=== PATIENT | female | born 1980 | race Two or more races ===

== ENCOUNTER 2025-03-14 19:58 | Emergency (ER) | payer MEDICAID, SELFPAY ==
[2025-03-14 20:36] VITALS: BP 119/80; PULSE 92; RESP 18; TEMP 37; O2SAT 98; BMI 31.3
--- NOTE | 2025-03-14 21:03 | XR_ITS ---
Examination: Pelvic ultrasound, transabdominal, complete Technique: Transabdominal ultrasound of the pelvis performed using grayscale imaging Date and time of exam: March 14, 2025 2116 hours INDICATIONS: Heavy vaginal bleeding beginning 2 days ago FINDINGS: Uterus 7.7 cm endometrial stripe 1.1 cm Impression intrauterine gestation Right ovary 3.7 cm arterial flow 24 mm cyst Left ovary 3.2 cm arterial flow IMPRESSION: No uterine mass or intrauterine gestation Right ovarian simple cyst 2.4 x 1.5 x 1.5 cm
--- NOTE | 2025-03-14 21:05 | EDNOTE_ITS ---
ED General RME/HPI General Chief complaint: Vaginal Bleeding Stated complaint: VAGINAL BLEEDING Time Seen by Provider: 03/14/25 20:11 Arrival date/time: 03/14/25 19:58 Mode of arrival: ambulatory Limitations: no limitations RME / HPI RME / HPI narrative: see EFREM CAUSEY complaint: profuse vaginal bleeding Onset (ago): day(s) Related Data Allergies Allergy/AdvReac Type Severity Reaction Status Date / Time No Known Allergies Allergy Verified 03/14/25 20:00 Review of Systems Review of Systems Systems Reviewed: All systems reviewed, normal except as documented ED Exam Narrative Physical exam: Physical Exam GENERAL: NAD, AAOx3 HEENT: Moist mucosa. Eyes open, symmetrical, & clear CARDIO: Heart RRR, no obvious murmurs PULM: No noted coughing/dyspnea CTA B/L, no R/W/R GI: Abdomen soft, nondistended, no pain on palpation. BSx4 SKIN/MSK/EXT: No wounds/rashes/edema/amputations, no pain on palpation. Pedal pulses present B/L NEURO: AAOx3, no focal neuro deficits, able to move all 4 extremities General Limitations: Present no limitations Course Course Course Narrative: 2107 CBC, CMP, bhg, pelvic US ordered Quality Measures none Orders Category Date Time Status US pelvic complete Stat Exams 03/14/25 21:03 Completed CBC Stat Lab 03/14/25 21:30 Completed CMP [Comprehensive Metabolic Panel] Stat Lab 03/14/25 21:30 Completed HCG,Qualitative Serum Stat Lab 03/14/25 21:30 Completed Vital Signs Vital signs: Vital Signs Temperature 98.6 F 03/14/25 20:36 Pulse Rate 92 03/14/25 20:36 Respiratory Rate 18 03/14/25 20:36 Blood Pressure 119/80 03/14/25 20:36 Pulse Oximetry (%) 98 03/14/25 20:36 Oxygen Delivery Method Room Air 03/14/25 20:36 Discharge Plan Plan Patient Disposition: HOME (Self Care) Prescriptions/Referrals Referrals: Shawn García PA-C [Primary Care Provider] - In 1 week Problem List Clinical Impression: Menometrorrhagia, Vaginal bleeding Patient/Caregiver Discharge Instructions Additional Instructions: Please follow up with your PCP within1 week of discharge Follow up with your OBGYN/ oncologist in regards to the results of your MRI and of your cervical cancer Should any symptoms recur or worsen patient is instructed to return to the ED. Print Language: Persian Stand Alone Forms: [facility] Info., Patient Portal Info Letter MDM Narrative MDM hospital course: 44 y/o F with recent diagnosis of cervical cancer came here to the ED due to vaginal bleeding. Patients states that around 2 days ago patient started to develop vaginal bleeding saturating more than 5 pads in an hour. She described no pain but does endorse hot flashes onset 1 day ago. She states she had abn ormal pap smear around 2-3 months ago and had biopsy done and an MRI which is awaiting results for on march 27. She states these symptoms has caused her to have insommnia and severe anxiety with associated mood swings. She denies fever, chills, shortness of breath, dizziness, LOC. 2107 CBC, CMP, BhCG, Pelvic US ordered labs reviewed hg stable at 9.9, Pelvic US shows simple cyst. Can follow up as outpatient with OBGYN and follow up with the results for MRI in regards to her cervical cancer Patient can be safely discharged with strict return precautions. Patient informed should any symptoms recur or worsen patient is instructed to return to the ED. Clinical Information Provided by patient and spouse Medical Records Reviewed None Meds/Rx Considered, not Ordered Describe details: estrogen therapy for hot flashes however patient has cervical bleeding due to her period. Labs/Rad/Tests considered, not Ordered Describe details: CT abdomen pelvis Chronic Illness/Social Conditions which may negatively complicate care or outcome(s)-explain: None or not applicable EKG EKG not done Lab Interpretation Labs: interpreted by ga Lab(s) interpretation(s): normocytic anemia Imaging Imaging interpretation: none Medication Administration(s) none Diagnosis Differential diagnosis: menorrhagia, endometriosis, cervical cancer Dispositon Disposition: Discharge Home
[2025-03-14 22:01] LABS: Basophils # (Auto) 0.0 Thou/mm3 (0.0-0.2); Basophils % (Auto) 0 % (0-2.5); Eosinophils # (Auto) 0.0 Thou/mm3 (0.0-0.5); Eosinophils % (Auto) 0 % (0-10); Hematocrit 29.4 % (36.0-46.0); Hemoglobin 9.9 g/dL (12.0-16.0); Immature Granulocytes Auto 0.03 Thou/mm3 (0.00-0.00); Lymphocytes # (Auto) 1.8 Thou/mm3 (1.0-4.8); Lymphocytes % (Auto) 20 % (10-50); Mean Corpuscular HGB Conc 33.7 g/dl (31.0-37.0); Mean Corpuscular Hemoglobin 30.7 pg (25.0-35.0); Mean Corpuscular Volume 91 fL (80-100); Monocytes # (Auto) 0.4 Thou/mm3 (0.0-0.8); Monocytes % (Auto) 4 % (0-12); Neutrophils # (Auto) 6.8 Thou/mm3 (1.8-7.7); Neutrophils % (Auto) 75 % (37-80); Nucleated Red Blood Cell # 0.00 Thou/mm3 (0.00-0.00); Nucleated Red Blood Cell % 0 /100 WBC (0); Platelet Count 144 Thou/mm3 (140-440); RDW Standard Deviation 43.9 fL (36.4-46.3); Red Blood Count 3.22 Miln/mm3 (4.00-5.20); White Blood Count 9.0 Thou/mm3 (3.6-11.0)
[2025-03-14 22:09] LABS: HCG,Qualitative Serum Negative
[2025-03-14 22:10] LABS: Alanine Aminotransferase 14 U/L (10-49); Albumin, Serum 4.5 gm/dL (3.5-5.0); Albumin/Globulin Ratio 1.9 (1.2-2.2); Alkaline Phosphatase 69 U/L (46-116); Anion Gap 10 (7-16); Aspartate Amino Transferase 18 U/L (0-34); BUN/Creatinine Ratio 28 Ratio (12-20); Bilirubin,Total 0.3 mg/dL (0.3-1.2); Blood Urea Nitrogen 22 mg/dL (9-23); Calcium 9.3 mg/dL (8.3-10.6); Calcium (Corrected) 9.3 mg/dL (8.5-10.1); Carbon Dioxide 25.4 mMol/L (20.0-31.0); Chloride 106 mMol/L (98-107); Creatinine (Component) 0.8 mg/dL (0.6-1.3); Estimated Creatinine Clearance 102.7 mL/min (>60); Globulin 2.4 gm/dL (2.3-3.5); Glucose 128 mg/dL (74-106); Osmolality,Calculated 286 (275-295); Potassium 4.0 mMol/L (3.4-5.1); Sodium 141 mMol/L (136-145); Total Protein 6.9 gm/dL (5.7-8.2); eGFR > 60 See Note
== END 2025-03-14 23:47 | disposition home or self-care (01) ==
PROVIDERS: Emergency Provider Student in an Organized Health Care Education/Training Program; PCP Physician Assistant
DX: N92.1 Excessive and frequent menstruation with irregular cycle (principal); N83.291 Other ovarian cyst, right side
CPT/HCPCS: 36415; 76856; 80053; 84703; 85025; 99284

== ENCOUNTER → 2025-08-15 | Outpatient (CLI) | payer BC, MEDICAID, SELFPAY ==
[2025-08-15 09:51] LABS: Basophils # (Auto) 0.0 Thou/mm3 (0.0-0.2); Basophils % (Auto) 1 % (0-2.5); Eosinophils # (Auto) 0.1 Thou/mm3 (0.0-0.5); Eosinophils % (Auto) 2 % (0-10); Hematocrit 36.1 % (36.0-46.0); Hemoglobin 11.4 g/dL (12.0-16.0); Immature Granulocytes Auto 0.02 Thou/mm3 (0.00-0.00); Lymphocytes # (Auto) 2.5 Thou/mm3 (1.0-4.8); Lymphocytes % (Auto) 40 % (10-50); Mean Corpuscular HGB Conc 31.6 g/dl (31.0-37.0); Mean Corpuscular Hemoglobin 27.2 pg (25.0-35.0); Mean Corpuscular Volume 86 fL (80-100); Monocytes # (Auto) 0.5 Thou/mm3 (0.0-0.8); Monocytes % (Auto) 8 % (0-12); Neutrophils # (Auto) 3.1 Thou/mm3 (1.8-7.7); Neutrophils % (Auto) 49 % (37-80); Nucleated Red Blood Cell # 0.00 Thou/mm3 (0.00-0.00); Nucleated Red Blood Cell % 0 /100 WBC (0); Platelet Count 162 Thou/mm3 (140-440); RDW Standard Deviation 61.3 fL (36.4-46.3); Red Blood Count 4.19 Miln/mm3 (4.00-5.20); White Blood Count 6.2 Thou/mm3 (3.6-11.0)
[2025-08-15 10:16] LABS: Alanine Aminotransferase 32 U/L (10-49); Albumin, Serum 4.9 gm/dL (3.5-5.0); Albumin/Globulin Ratio 1.9 (1.2-2.2); Alkaline Phosphatase 83 U/L (46-116); Anion Gap 10 (7-16); Aspartate Amino Transferase 23 U/L (0-34); BUN/Creatinine Ratio 20 Ratio (12-20); Bilirubin,Total 0.3 mg/dL (0.3-1.2); Blood Urea Nitrogen 12 mg/dL (9-23); Calcium 9.9 mg/dL (8.3-10.6); Calcium (Corrected) 9.9 mg/dL (8.5-10.1); Carbon Dioxide 28.8 mMol/L (20.0-31.0); Chloride 104 mMol/L (98-107); Creatinine (Component) 0.6 mg/dL (0.6-1.3); Globulin 2.6 gm/dL (2.3-3.5); Glucose 96 mg/dL (74-106); Osmolality,Calculated 284 (275-295); Potassium 3.8 mMol/L (3.4-5.1); Sodium 143 mMol/L (136-145); Total Protein 7.5 gm/dL (5.7-8.2); eGFR > 60 See Note
[2025-08-15 10:18] LABS: Glucose Estimated Average 123 mg/dL (80-131); Hemoglobin A1C 5.9 % Hgb (4.8-6.0)
== END | disposition home or self-care (01) ==
LOC: COPL 08:59
PROVIDERS: PCP Family Medicine; Referring Provider Student in an Organized Health Care Education/Training Program; Visit Provider Student in an Organized Health Care Education/Training Program
DX: E66.811 Obesity, class 1 (principal); E66.09 Other obesity due to excess calories; Z68.34 Body mass index [BMI] 34.0-34.9, adult; R53.82 Chronic fatigue, unspecified
CPT/HCPCS: 36415; 80053; 83036; 85025